=== PATIENT | female | born 1960 | race Caucasian/White ===

== ENCOUNTER 2025-01-04 21:10 | Inpatient (IN) | payer MEDICAID ==
[~2025-01-04] VITALS: Ht 160 cm; Wt 123.4 kg
[2025-01-04] MEDS: SODIUM CHLORIDE 0.9% (SEPSIS BOLUS) IV ONE (21:28)
[2025-01-04] MEDS: CEFTRIAXONE 1GM/50ML 50 ML IV ONE (21:43)
[2025-01-04] MEDS: METHYLPREDNISOLONE SOD SUCC 125MG/2ML (ACT-O-VIAL) IV ONE (21:43)
[2025-01-04 22:02] LABS: HEMATOCRIT. 36.5 % (36.0-48.0); HEMOGLOBIN. 11.8 g/dL (12.0-16.0); MEAN PLATELET VOLUME 7.8 fl (7.4-10.4); PLATELET 198 x1000/uL (130-400); RED BLOOD CELL COUNT 3.94 mill/uL (4.2-5.4); RED CELL DISTRIBUTION WIDTH 19.9 % (11.6-14.6)
[2025-01-04 22:11] LABS: INR 1.1
[2025-01-04] MEDS: AZITHROMYCIN 500MG/250ML 250 ML IV ONE (22:13)
[2025-01-04 22:16] LABS: CREATININE 0.9 mg/dL (0.6-1.0)
[2025-01-04 22:17] LABS: UREA NITROGEN BLOOD 27 mg/dL (9-23)
[2025-01-04 22:18] LABS: ASPARTATE AMINOTRANSFERASE 28 IU/L (<34)
[2025-01-04 22:19] LABS: BILIRUBIN DIRECT 0.2 mg/dL (<=3.0); BILIRUBIN TOTAL 0.9 mg/dL (0.1-1.0); PROTEIN TOTAL 7.3 g/dL (6.0-8.3)
[2025-01-04] MEDS: IPRATROPIUM BROMIDE (0.02%) 0.5MG/2.5ML NEB HHN SCH (22:19)
[2025-01-04] MEDS: ALBUTEROL (0.083%) 2.5MG/3ML NEB HHN SCH (22:19)
[2025-01-04 22:20] VITALS: RESP 24
[2025-01-04 22:20] LABS: BAND% 2.0 % (1.0-6.0); LYMPHOCYTES % MANUAL 24.0 % (20.0-60.0); MONOCYTES % MANUAL 7.0 % (2.0-8.0); NEUTROPHILS % MANUAL 67.0 % (45.0-75.0); PLATELET ESTIMATE NORMAL
[2025-01-04 22:21] LABS: TROPONIN I HIGH SENSITIVITY 43 ng/L (3.0-34)
[2025-01-04 22:40] VITALS: RESP 20
[2025-01-04 22:51] LABS: BG DEOXYHEMOGLOBIN 44.5 % (0.0-5.0)
[2025-01-04 23:00] VITALS: RESP 20
[2025-01-05] VITALS (17 sets, daily range): BP systolic 116–175; BP diastolic 71–152; PULSE 8–97; RESP 16–33; TEMP 36.1–37.1; O2SAT 93–99
[2025-01-05 00:04] LABS: TROPONIN I HIGH SENSITIVITY 40 ng/L (3.0-34)
[2025-01-05 00:55] LABS: TROPONIN I HIGH SENSITIVITY 37 ng/L (3.0-34)
[2025-01-05] MEDS ORDERED: ONDANSETRON HCL 4MG/2ML INJ IV PRN (04:15)
[2025-01-05] MEDS ORDERED: MAGNESIUM/ALUMINUM HYDROXIDE/SIMETHICONE 30ML UDC PO PRN (04:15)
[2025-01-05] MEDS ORDERED: DOCUSATE SODIUM 100MG CAPSULE PO PRN (04:15)
[2025-01-05] MEDS ORDERED: ACETAMINOPHEN 325MG TABLET PO PRN ×2 (04:15)
[2025-01-05] MEDS ORDERED: CLONIDINE 0.1MG TABLET PO PRN (04:15)
[2025-01-05] MEDS ORDERED: GUAIFENESIN 200MG/10ML SUGAR FREE UDC PO PRN (04:15)
[2025-01-05] MEDS ORDERED: DEXTROSE 50% WATER 50ML SYRINGE IV PRN (05:30)
[2025-01-05] MEDS ORDERED: FUROSEMIDE 20MG/2ML VIAL IVP SCH (06:00)
[2025-01-05] MEDS: POTASSIUM CHLORIDE 20MEQ TABLET SR PO SCH (06:35)
[2025-01-05] MEDS: METHYLPREDNISOLONE SOD SUCC 40MG/ML (ACT-O-VIAL) IV SCH (06:35)
[2025-01-05] MEDS: FUROSEMIDE 20MG/2ML VIAL IVP SCH ×2 (06:36→17:11)
[2025-01-05] MEDS: BLOOD SUGAR DIAGNOSTIC STRIP TEST SCH (07:30)
[2025-01-05] MEDS: IPRATROPIUM/ALBUTEROL 0.5-3(2.5)MG/3ML NEB HHN SCH (08:30)
[2025-01-05] MEDS: ENOXAPARIN 40MG/0.4ML SYR SUBCUT SCH (08:55)
[2025-01-05] MEDS: PANTOPRAZOLE SODIUM 40 MG/VIAL IV SCH (08:55)
[2025-01-05] MEDS: INSULIN LISPRO 100 UNITS/ML SUBCUT SCH (08:56)
[2025-01-05 09:02] LABS: BG BASE EXCESS -3.1 mmol/L (-2.0-3.0); BG CARBOXYHEMOGLOBIN 1.0 % (0.5-1.5); BG DEOXYHEMOGLOBIN 0.2 % (0.0-5.0); BG FRACTION INSPIRED OXYGEN 80; BG HCO3 ACT 20.8 mmol/L (21.0-28.0); BG METHEMOGLOBIN 0.1 % (0.5-1.5); BG OXYGEN SATURATION 99.8 % (94.0-98.0); BG OXYHEMOGLOBIN 98.7 % (94.0-98.0); BG PCO2 34.1 mmHg (32.0-45.0); BG PH 7.404 (7.350-7.450); BG PO2 326.0 mmHg (83.0-108.0); BG SAMPLE SITE LEFT RADIAL; BG TOTAL HEMOGLOBIN 13.5 g/dL (12.0-16.0); BG VENT MODE MASK - BIPAP; BG VENT RATE 16.0 set
[2025-01-05 10:40] LABS: CREATINE KINASE MB FRACTION 1.3 ng/mL (0.5-3.6); TROPONIN I HIGH SENSITIVITY 20.0 ng/L (3.0-34)
[2025-01-05] MEDS: AMLODIPINE 5MG TABLET PO NR (12:47)
[2025-01-05] MEDS: ENOXAPARIN 120MG/0.8ML SYR SUBCUT SCH (12:48)
[2025-01-05 13:42] LABS: HEMATOCRIT. 34.9 % (36.0-48.0); HEMOGLOBIN. 11.4 g/dL (12.0-16.0); MEAN PLATELET VOLUME 8.1 fl (7.4-10.4); PLATELET 170 x1000/uL (130-400); RED BLOOD CELL COUNT 3.79 mill/uL (4.2-5.4); RED CELL DISTRIBUTION WIDTH 19.9 % (11.6-14.6)
[2025-01-05 13:50] LABS: CREATININE 0.9 mg/dL (0.6-1.0)
[2025-01-05 13:51] LABS: LDL CHOLESTEROL 204 mg/dL (5-100); TRIGLYCERIDE 235 mg/dL (0-150); UREA NITROGEN BLOOD 21 mg/dL (9-23)
[2025-01-05 13:52] LABS: ASPARTATE AMINOTRANSFERASE 21 IU/L (<34)
[2025-01-05 13:53] LABS: BILIRUBIN TOTAL 0.8 mg/dL (0.1-1.0); PHOSPHORUS 2.5 mg/dL (2.5-4.9); PROTEIN TOTAL 6.7 g/dL (6.0-8.3)
[2025-01-05 13:56] LABS: T4 FREE 1.74 ng/dL (0.89-1.76)
[2025-01-05 16:19] LABS: CREATINE KINASE MB FRACTION 1.8 ng/mL (0.5-3.6); CREATININE 1.0 mg/dL (0.6-1.0); TROPONIN I HIGH SENSITIVITY 18 ng/L (3.0-34); UREA NITROGEN BLOOD 22 mg/dL (9-23)
[2025-01-05 16:21] LABS: ASPARTATE AMINOTRANSFERASE 20 IU/L (<34); BILIRUBIN TOTAL 0.8 mg/dL (0.1-1.0); PROTEIN TOTAL 7.0 g/dL (6.0-8.3)
[2025-01-05 18:39] LABS: CLARITY URINE CLEAR (CLEAR); COLOR URINE YELLOW (YELLOW); GLUCOSE URINE 1+ (NEGATIVE); KETONES URINE NEGATIVE (NEGATIVE); LEUKOCYTE ESTERASE URINE 2+ (NEGATIVE); NITRITE URINE NEGATIVE (NEGATIVE); OCCULT BLOOD URINE NEGATIVE (NEGATIVE); PH URINE 5.5 (4.5-8.0); PROTEIN URINE NEGATIVE (NEGATIVE); SPECIFIC GRAVITY URINE 1.013 (1.005-1.030); UROBILINOGEN URINE 0.2 E.U./dL (0.2-1.0)
[2025-01-05 18:55] LABS: LYMPHOCYTES % MANUAL 4.0 % (20.0-60.0); MONOCYTES % MANUAL 5.0 % (2.0-8.0); NEUTROPHILS % MANUAL 91.0 % (45.0-75.0); PLATELET ESTIMATE NORMAL
[2025-01-05 19:28] LABS: *AMPHETAMINES SCREEN URINE NEGATIVE (NEGATIVE); *BARBITURATES SCREEN URINE NEGATIVE (NEGATIVE); *BENZODIAZEPINES SCREEN URINE NEGATIVE (NEGATIVE); *COCAINE SCREEN URINE NEGATIVE (NEGATIVE); CANNABINOID URINE SCREEN NEGATIVE (NEGATIVE); ECSTASY MDMA SCREEN URINE NEGATIVE (NEGATIVE); METHADONE URINE SCREEN NEGATIVE (NEGATIVE); OPIATES URINE SCREEN NEGATIVE (NEGATIVE); PHENCYCLIDINE URINE SCREEN NEGATIVE (NEGATIVE)
[2025-01-05] MEDS: AMLODIPINE 5MG TABLET PO SCH (21:43)
[2025-01-05] MEDS: DOXYCYCLINE 100MG/100ML 100 ML IV SCH (21:44)
[2025-01-05] MEDS: ATORVASTATIN CALCIUM 40MG TABLET PO SCH (21:45)
[2025-01-05] MEDS: CEFTRIAXONE 1GM/50ML 50 ML IV SCH (21:45)
[2025-01-05 22:32] LABS: RBC URINE 0-2 /hpf (0-2)
[2025-01-05 22:33] LABS: BACTERIA URINE NONE SEEN; SQUAMOUS EPITHELIAL CELL URINE FEW /lpf (RARE/1+); YEAST URINE 1+
[2025-01-06] VITALS (18 sets, daily range): BP systolic 106–160; BP diastolic 66–102; PULSE 82–113; RESP 15–29; TEMP 36.7–37.3; O2SAT 86–98
[2025-01-06 06:22] LABS: HEMATOCRIT. 35.0 % (36.0-48.0); HEMOGLOBIN. 11.5 g/dL (12.0-16.0); MEAN PLATELET VOLUME 8.2 fl (7.4-10.4); PLATELET 195 x1000/uL (130-400); RED BLOOD CELL COUNT 3.83 mill/uL (4.2-5.4); RED CELL DISTRIBUTION WIDTH 20.0 % (11.6-14.6)
[2025-01-06 06:29] LABS: CREATININE 0.9 mg/dL (0.6-1.0); TROPONIN I HIGH SENSITIVITY 18 ng/L (3.0-34)
[2025-01-06 06:30] LABS: UREA NITROGEN BLOOD 28 mg/dL (9-23)
[2025-01-06 06:32] LABS: PHOSPHORUS 2.5 mg/dL (2.5-4.9)
[2025-01-06] MEDS: METHYLPREDNISOLONE SOD SUCC 40MG/ML (ACT-O-VIAL) IV SCH (09:31)
[2025-01-06] MEDS: INSULIN LISPRO 100 UNITS/ML SUBCUT SCH (09:46)
[2025-01-06] MEDS: POTASSIUM CHLORIDE 20MEQ TABLET SR PO NR (09:56)
[2025-01-06 10:05] LABS: BG BASE EXCESS 2.1 mmol/L (-2.0-3.0); BG CARBOXYHEMOGLOBIN 0.6 % (0.5-1.5); BG DEOXYHEMOGLOBIN 5.7 % (0.0-5.0); BG FLOW(L/min) 4.00 L/min; BG FRACTION INSPIRED OXYGEN 36; BG HCO3 ACT 25.2 mmol/L (21.0-28.0); BG METHEMOGLOBIN 0.3 % (0.5-1.5); BG OXYGEN SATURATION 94.2 % (94.0-98.0); BG OXYHEMOGLOBIN 93.4 % (94.0-98.0); BG PCO2 34.4 mmHg (32.0-45.0); BG PH 7.483 (7.350-7.450); BG PO2 69.1 mmHg (83.0-108.0); BG SAMPLE SITE LEFT RADIAL; BG TOTAL HEMOGLOBIN 12.5 g/dL (12.0-16.0); BG VENT MODE NASAL CANNULA
[2025-01-06 11:11] LABS: BAND% 6.0 % (1.0-6.0); LYMPHOCYTES % MANUAL 6.0 % (20.0-60.0); MONOCYTES % MANUAL 5.0 % (2.0-8.0); NEUTROPHILS % MANUAL 83.0 % (45.0-75.0); PLATELET ESTIMATE NORMAL
[2025-01-06] MEDS: FERROUS SULFATE 325MG TABLET PO SCH (15:51)
[2025-01-06] MEDS ORDERED: IOHEXOL-350 100 ML BOTTLE ONE (17:21)
[2025-01-06] MEDS: FUROSEMIDE 100MG/10ML VIAL IVP SCH (18:00)
[2025-01-07] VITALS (11 sets, daily range): BP systolic 122–148; BP diastolic 66–110; PULSE 85–110; RESP 16–27; TEMP 36.3–37.1; O2SAT 89–100
[2025-01-07 07:28] LABS: HEMATOCRIT. 32.2 % (36.0-48.0); HEMOGLOBIN. 10.7 g/dL (12.0-16.0); MEAN PLATELET VOLUME 8.4 fl (7.4-10.4); PLATELET 223 x1000/uL (130-400); RED BLOOD CELL COUNT 3.54 mill/uL (4.2-5.4); RED CELL DISTRIBUTION WIDTH 19.8 % (11.6-14.6)
[2025-01-07 07:59] LABS: CREATININE 0.8 mg/dL (0.6-1.0)
[2025-01-07 08:00] LABS: UREA NITROGEN BLOOD 31 mg/dL (9-23)
[2025-01-07 08:01] LABS: PHOSPHORUS 2.7 mg/dL (2.5-4.9)
[2025-01-07 12:51] LABS: BAND% 3.0 % (1.0-6.0); LYMPHOCYTES % MANUAL 6.0 % (20.0-60.0); MONOCYTES % MANUAL 7.0 % (2.0-8.0); NEUTROPHILS % MANUAL 84.0 % (45.0-75.0); PLATELET ESTIMATE NORMAL
[2025-01-07 18:32] LABS: INFLUENZA TYPE A Presumptive Negative (Pres. Neg.); INFLUENZA TYPE B Presumptive Negative (Pres. Neg.)
[2025-01-07 18:33] LABS: RESPIRATORY SYNCYTIAL VIRUS Not Detected (Not Detectd)
[2025-01-08 00:02] VITALS: BP 129/79; PULSE 88; RESP 28; TEMP 36.9; O2SAT 99
[2025-01-08 04:00] VITALS: BP 109/53; PULSE 88; RESP 19; TEMP 36.9; O2SAT 94
[2025-01-08 08:00] VITALS: BP 109/70; PULSE 95; RESP 21; TEMP 36.3; O2SAT 93
[2025-01-08 08:24] LABS: PLATELET 236 x1000/uL (130-400); RED BLOOD CELL COUNT 3.89 mill/uL (4.2-5.4); RED CELL DISTRIBUTION WIDTH 19.4 % (11.6-14.6)
[2025-01-08 08:29] LABS: CREATININE 0.7 mg/dL (0.6-1.0); UREA NITROGEN BLOOD 31 mg/dL (9-23)
[2025-01-08] MEDS: POTASSIUM CHLORIDE 20MEQ TABLET SR PO NR (11:01)
[2025-01-08 11:25] LABS: BG BASE EXCESS 6.8 mmol/L (-2.0-3.0); BG CARBOXYHEMOGLOBIN 0.9 % (0.5-1.5); BG DEOXYHEMOGLOBIN 8.5 % (0.0-5.0); BG FRACTION INSPIRED OXYGEN 21; BG HCO3 ACT 31.2 mmol/L (21.0-28.0); BG METHEMOGLOBIN 0.3 % (0.5-1.5); BG OXYGEN SATURATION 91.4 % (94.0-98.0); BG OXYHEMOGLOBIN 90.3 % (94.0-98.0); BG PCO2 43.2 mmHg (32.0-45.0); BG PH 7.476 (7.350-7.450); BG PO2 57.3 mmHg (83.0-108.0); BG SAMPLE SITE RIGHT BRACHIAL; BG TOTAL HEMOGLOBIN 13.0 g/dL (12.0-16.0); BG VENT MODE ROOM AIR
[2025-01-08 12:00] VITALS: BP 100/60; PULSE 85; RESP 18; TEMP 36.4; O2SAT 91
[2025-01-08 16:00] VITALS: BP 107/73; PULSE 97; RESP 21; TEMP 36.4; O2SAT 95
[2025-01-08 20:00] VITALS: BP 119/70; PULSE 94; RESP 21; TEMP 37.2; O2SAT 95
[2025-01-09] VITALS (9 sets, daily range): BP systolic 105–140; BP diastolic 67–95; PULSE 94–100; RESP 18–28; TEMP 36.2–37.9; O2SAT 92–99
[2025-01-09 07:15] LABS: HEMATOCRIT. 34.9 % (36.0-48.0); HEMOGLOBIN. 11.4 g/dL (12.0-16.0); MEAN PLATELET VOLUME 8.7 fl (7.4-10.4); PLATELET 257 x1000/uL (130-400); RED BLOOD CELL COUNT 3.79 mill/uL (4.2-5.4); RED CELL DISTRIBUTION WIDTH 19.5 % (11.6-14.6)
[2025-01-09 07:17] LABS: CREATININE 0.7 mg/dL (0.6-1.0); UREA NITROGEN BLOOD 26 mg/dL (9-23)
[2025-01-09 07:19] LABS: PHOSPHORUS 3.6 mg/dL (2.5-4.9)
[2025-01-09] MEDS: IPRATROPIUM/ALBUTEROL 0.5-3(2.5)MG/3ML NEB HHN PRN (09:40)
[2025-01-09 16:51] LABS: EOSINOPHILS % MANUAL 2.0 % (0.0-5.0); LYMPHOCYTES % MANUAL 12.0 % (20.0-60.0); METAMYELOCYTES % 2.0 % (0-0); MONOCYTES % MANUAL 9.0 % (2.0-8.0); MYELOCYTES % 2.0 % (0-0); NEUTROPHILS % MANUAL 73.0 % (45.0-75.0); PLATELET ESTIMATE NORMAL
[2025-01-10] VITALS (10 sets, daily range): BP systolic 108–173; BP diastolic 67–101; PULSE 86–99; RESP 18–25; TEMP 36.8–37.9; O2SAT 93–98
[2025-01-10 06:08] LABS: CREATININE 0.7 mg/dL (0.6-1.0); UREA NITROGEN BLOOD 20 mg/dL (9-23)
[2025-01-10 06:26] LABS: HEMATOCRIT. 36.5 % (36.0-48.0); HEMOGLOBIN. 11.9 g/dL (12.0-16.0); MEAN PLATELET VOLUME 8.5 fl (7.4-10.4); PLATELET 283 x1000/uL (130-400); RED BLOOD CELL COUNT 4.00 mill/uL (4.2-5.4); RED CELL DISTRIBUTION WIDTH 19.5 % (11.6-14.6)
[2025-01-10] MEDS ORDERED: HEPARIN 1000 UNITS/ML 10ML ONE (09:53)
[2025-01-10] MEDS ORDERED: LIDOCAINE HCL 1% 20ML VIAL ONE (09:53)
[2025-01-10] MEDS ORDERED: IODIXANOL 320 MG/ML 150ML BOTTLE IV ONE (09:53)
[2025-01-10] MEDS ORDERED: DIPHENHYDRAMINE 50MG/ML VIAL ONE (10:25)
[2025-01-10] MEDS ORDERED: MIDAZOLAM HCL 2 MG/2 ML VIAL ONE (10:25)
[2025-01-10] MEDS ORDERED: FENTANYL CITRATE/PF 50MCG/ML 2ML VIAL ONE (10:25)
[2025-01-10] MEDS ORDERED: KCL 20MEQ/100ML PREMIX 100 ML IV SCH (10:30)
[2025-01-10] MEDS: KCL 20MEQ/100ML PREMIX 100 ML IV SCH (14:00)
[2025-01-10 17:13] LABS: CREATININE 0.7 mg/dL (0.6-1.0); UREA NITROGEN BLOOD 21 mg/dL (9-23)
[2025-01-10 17:20] LABS: HEMATOCRIT. 36.1 % (36.0-48.0); HEMOGLOBIN. 11.3 g/dL (12.0-16.0); MEAN PLATELET VOLUME 8.5 fl (7.4-10.4); PLATELET 220 x1000/uL (130-400); RED BLOOD CELL COUNT 3.78 mill/uL (4.2-5.4); RED CELL DISTRIBUTION WIDTH 20.0 % (11.6-14.6)
[2025-01-10] MEDS ORDERED: FERROUS SULFATE 325MG TABLET PO SCH (18:00)
[2025-01-10] MEDS ORDERED: SODIUM ZIRCONIUM CYCLOSILICATE 10GM/PACKET PO NR (18:30)
[2025-01-10 18:52] LABS: EOSINOPHILS % MANUAL 3.0 % (0.0-5.0); LYMPHOCYTES % MANUAL 9.0 % (20.0-60.0); MONOCYTES % MANUAL 4.0 % (2.0-8.0); NEUTROPHILS % MANUAL 84.0 % (45.0-75.0)
[2025-01-10 18:53] LABS: PLATELET ESTIMATE NORMAL
[2025-01-10 19:20] LABS: BAND% 2.0 % (1.0-6.0); EOSINOPHILS % MANUAL 2.0 % (0.0-5.0); LYMPHOCYTES % MANUAL 8.0 % (20.0-60.0); MONOCYTES % MANUAL 3.0 % (2.0-8.0); NEUTROPHILS % MANUAL 85.0 % (45.0-75.0); NUCLEATED RED BLOOD CELLS 1 /100 WBC; PLATELET ESTIMATE NORMAL
[2025-01-10] MEDS: APIXABAN 5 MG TABLET PO SCH (20:37)
[2025-01-10] MEDS: CALCIUM GLUCONATE 100MG/ML 10ML VIAL IV NR (20:56)
[2025-01-10 21:19] LABS: CREATININE 0.6 mg/dL (0.6-1.0); UREA NITROGEN BLOOD 18 mg/dL (9-23)
[2025-01-11] VITALS (7 sets, daily range): BP systolic 96–151; BP diastolic 60–86; PULSE 80–101; RESP 17–22; TEMP 36.6–37.3; O2SAT 93–99
[2025-01-11 08:28] LABS: HEMATOCRIT. 32.5 % (36.0-48.0); HEMOGLOBIN. 10.5 g/dL (12.0-16.0); MEAN PLATELET VOLUME 8.4 fl (7.4-10.4); PLATELET 271 x1000/uL (130-400); RED BLOOD CELL COUNT 3.50 mill/uL (4.2-5.4); RED CELL DISTRIBUTION WIDTH 19.7 % (11.6-14.6)
[2025-01-11 08:42] LABS: CREATININE 0.6 mg/dL (0.6-1.0)
[2025-01-11 08:43] LABS: UREA NITROGEN BLOOD 17 mg/dL (9-23)
[2025-01-11 08:45] LABS: PHOSPHORUS 2.9 mg/dL (2.5-4.9)
[2025-01-11] MEDS ORDERED: LIP40 PO (12:05)
[2025-01-11] MEDS ORDERED: AMLO2.5T45 PO (12:05)
[2025-01-11] MEDS ORDERED: PROT40 MT (12:05)
[2025-01-11] MEDS ORDERED: APIX5TAB PO (12:05)
[2025-01-11] MEDS ORDERED: TOPUD PO (12:05)
[2025-01-11] MEDS ORDERED: FERR-63 PO (12:05)
[2025-01-11] MEDS ORDERED: AMOX1TAB15 MT (12:05)
[2025-01-11 16:33] LABS: EOSINOPHILS % MANUAL 2.0 % (0.0-5.0); LYMPHOCYTES % MANUAL 17.0 % (20.0-60.0); MONOCYTES % MANUAL 9.0 % (2.0-8.0); NEUTROPHILS % MANUAL 72.0 % (45.0-75.0); PLATELET ESTIMATE NORMAL
[2025-01-12] MEDS ORDERED: AMLODIPINE 2.5MG TABLET PO SCH (09:00)
[2025-01-17] MEDS ORDERED: APIXABAN 5 MG TABLET PO SCH (21:00)
== END 2025-01-11 16:30 | disposition home or self-care (01) | DRG 720 ==
LOC: ER 21:10 → 5EST 01-05 01:39 → EDBD 01-05 01:39 → EDBEDREQ 01-05 01:50 → EDBEDREQTM 01-05 01:50 → ENRESERV 01-05 02:29 → 5EST 01-05 04:22
PROVIDERS: ADMIT Internal Medicine; ATTEND Internal Medicine
PROC: 5A09357 Assistance with Respiratory Ventilation, Less than 24 Consecutive Hours, Continuous Positive Airway Pressure (ICD-10-PCS; 2025-01-04)
PROC: 5A09357 Assistance with Respiratory Ventilation, Less than 24 Consecutive Hours, Continuous Positive Airway Pressure (ICD-10-PCS; 2025-01-05)
PROC: 02CQ3ZZ Extirpation of Matter from Right Pulmonary Artery, Percutaneous Approach (ICD-10-PCS; principal; 2025-01-10)
PROC: B31S1ZZ Fluoroscopy of Right Pulmonary Artery using Low Osmolar Contrast (ICD-10-PCS; 2025-01-10)
DX: A41.9 Sepsis, unspecified organism (principal); J96.01 Acute respiratory failure with hypoxia; I26.99 Other pulmonary embolism without acute cor pulmonale; I50.33 Acute on chronic diastolic (congestive) heart failure; I82.413 Acute embolism and thrombosis of femoral vein, bilateral; D64.9 Anemia, unspecified; E11.65 Type 2 diabetes mellitus with hyperglycemia; E66.01 Morbid (severe) obesity due to excess calories; Z68.42 Body mass index [BMI] 45.0-49.9, adult; K76.0 Fatty (change of) liver, not elsewhere classified; I35.8 Other nonrheumatic aortic valve disorders; J18.9 Pneumonia, unspecified organism; Z60.3 Acculturation difficulty; I21.A1 Myocardial infarction type 2; I83.015 Varicose veins of right lower extremity with ulcer other part of foot; I83.025 Varicose veins of left lower extremity with ulcer other part of foot; G47.33 Obstructive sleep apnea (adult) (pediatric); E87.6 Hypokalemia; I87.8 Other specified disorders of veins; L97.519 Non-pressure chronic ulcer of other part of right foot with unspecified severity; L97.529 Non-pressure chronic ulcer of other part of left foot with unspecified severity; I87.2 Venous insufficiency (chronic) (peripheral); N39.0 Urinary tract infection, site not specified; E78.5 Hyperlipidemia, unspecified; Z55.6 Problems related to health literacy; Z79.899 Other long term (current) drug therapy; Z79.01 Long term (current) use of anticoagulants; Z59.71 Insufficient health insurance coverage
CPT/HCPCS: 36415; 36600; 37184; 71045; 71275; 75741; 80048; 80053; 80061; 80076; 80305; 81003; 82375; 82550; 82553; 82728; 82803; 82805; 82962; 83036; 83540; 83550; 83605; 83735; 83880; 84100; 84132; 84145; 84439; 84443; 84484; 85025; 85027; 85347; 85379; 86850; 86900; 87070; 87420; 87804; 93005; 93306; 93970; 94070; 94618; 94640; 94660; 94664; 94760; 96365; 96368; 96375; 98960; 99291; A4606; C1760; C1769; C1893; J0456; J0610; J0696; J1200; J1644; J1650; J1815; J1938; J2003; J2250; J2470; J2919; J3010; J3480; J3490; J7030; Q9967; C1757; C1894